=== PATIENT | female | born 2000 | race Caucasian/White ===

== ENCOUNTER 2020-03-15 18:15 | Emergency (ER) | payer OTHER ==
[~2020-03-15] VITALS: Ht 157.5 cm; Wt 52.2 kg
[~2020-03-15 18:15] MED LIST: ALEVE220 M1 PO; GILTUSS TR TAB1 EACH PO; LOESTRIN1 TA1; VISTARIL25 MG PO; ZANTAC150 M3 PO
== END 2020-03-15 19:00 | disposition home or self-care (01) ==
LOC: ER 18:15
DX: M94.0 Chondrocostal junction syndrome [Tietze] (principal); F06.4 Anxiety disorder due to known physiological condition

== ENCOUNTER 2020-03-21 21:36 | Emergency (ER) | payer OTHER ==
[~2020-03-21] VITALS: Ht 157.5 cm; Wt 52.2 kg
[2020-03-21] MEDS ORDERED: ADVIL200 MG (21:57)
[2020-03-21] MEDS ORDERED: DICLOFENAC SODI75 MG PO (22:17)
== END 2020-03-21 23:14 | disposition home or self-care (01) ==
LOC: ER 21:36
DX: M94.0 Chondrocostal junction syndrome [Tietze] (principal)